=== PATIENT | male | born 1955 | race Caucasian/White ===

== ENCOUNTER 2020-01-16 07:30 | Outpatient (CLI) | payer OTHER, SELFPAY ==
--- NOTE | ~2020-01-16 | US_ITS ---
EXAMINATION: US carotid duplex BI DATE: 01/16/2020 08:01 INDICATION: Other specified symptoms and signs involving the circulation TECHNIQUE: Grayscale, color Doppler, and pulsed Doppler images of the cervical carotid arteries were obtained. The degree of vessel stenosis is placed in one of the following categories: normal, <50%, 5 0-69%, >=70% but less than near-occlusion, near-occlusion, or total occlusion. Note that percent sten osis relative to normal distal artery lumen diameter is indirectly measured from velocity measurement s as described by Kareem, et al. Radiology 2003; 229:340-346. COMPARISON: None. FINDINGS: RIGHT: The right common carotid artery (CCA) peak systolic velocity (PSV) is 82.0 cm/s. The right internal c arotid artery (ICA) PSV is 63.7 cm/s. The right ICA end-diastolic velocity (EDV) is 22.6 cm/s. The ri ght ICA/CCA PSV ratio is 0.8. Grayscale and color Doppler images yield an estimate of less than 50% d iameter reduction from plaque in the ICA. The external carotid artery (ECA) PSV is 65.2 cm/s. There i s antegrade flow in the right vertebral artery. LEFT: The left CCA PSV is 93.3 cm/s. The left ICA PSV is 48.1 cm/s. The left ICA EDV is 21.2 cm/s. The left ICA/CCA PSV ratio is 0.5. Grayscale and color Doppler images yield an estimate of less than 50% diam eter reduction from plaque in the ICA. The ECA PSV is 56.6 cm/s. There is antegrade flow in the left vertebral artery. IMPRESSION: 1. Less than 50% stenosis in the right internal carotid artery. 2. Less than 50% stenosis in the left internal carotid artery. Reviewed, dictated and finalized at [facility]. Reviewed, dictated and finalized at [facility].
== END 2020-01-16 07:31 | disposition home or self-care (01) ==
LOC: ANHIMG 07:33
PROVIDERS: PCP Internal Medicine; Visit Provider Internal Medicine
DX: R09.89 Other specified symptoms and signs involving the circulatory and respiratory systems (principal); I65.23 Occlusion and stenosis of bilateral carotid arteries
CPT/HCPCS: 93880

== ENCOUNTER 2020-06-18 08:35 | Outpatient (CLI) | payer OTHER, SELFPAY ==
--- NOTE | 2020-07-24 17:32 | WPDHOMESLEEP ---
Sleep Study - Home Unattended Date of Study: 06/18/20 Ordering Provider: Krystal Macias MD Interpreting Physician: Mallory Oliver MD Home Sleep Study Type: Apnea Link Air Height: 1.85 m Weight: 95.254 kg Body Mass Index: 27.7 Neck Circumference (inches): 15.5 [place]: 8 Reason for Sleep Study Waking at night with heart racing, , hypersomnia Sleep History Antony Kearney is a 65-year-old man who for many years has had difficulty waking up multiple times throughout the night. His heart is often racing. When he wakes up in the morning he feels as if a Ben truck had him. Does not feel rested. He also had difficulty falling asleep. He has a brother with a history of sleep disordered breathing. He constantly snores and is constantly loud enough that others complain about it. He occasionally awakens at night with heartburn, belching or coughing. He frequently has trouble sleeping with a cold. He frequently wakes up gasping for breath during the night. He occasionally has breathing problems at night observed by others. He never sweats excessively at night. He frequently notices his heart pounding or beating irregularly the night. He occasionally falls asleep during the day, frequently involuntarily however never while driving. He does not fall asleep during physical effort. He does not have loss of muscle tone with strong emotion. He does not have daytime difficulties due to excessive sleepiness. He is retired. He does not feel paralyzed on waking or falling asleep although he frequently has vivid dreamlike scenes upon awakening or falling asleep. He is not fearful of going to sleep. He occasionally has nightmares and occasionally remembers his dreams. He rarely has racing thoughts through his mind. He rarely feels sad, depressed or anxious. He never has muscular tension, never notices parts of his body jerking. He does not kick at night, denies crawling and aching feelings in his legs at night and denies having any leg pain during the night. He does not have morning jaw pain. He frequently grinds his teeth at night. He has never bothered by pain during the day and has never awakened by pain at night. He rarely wakes up feeling stiff in the morning, rarely wakes up with sore or achy muscles and rarely wakes up with pain in the neck or spine. He takes antacids regularly and regularly has heartburn at night. He has insomnia on occasion. Normal bedtime is between 7:00 and 8:00 p.m. . If he is on the couch it takes 15 minutes to fall asleep. If he is in bed it takes a 1/2 hour or maybe up to 1 full hour. It seems like he wakes up tender 15 times at night. When awake he will remain awake for 5-10 minutes. He rolls over in attempts to fall asleep again. He wakes in the morning at 4:00 a.m. which is the time that he previously woke up to go to work. Even though he is retired he still wakes up at 4 in the morning. If he sleeps past 4:00 a.m. he would feel as if he had over slept.. On the weekends he stays awake later, going to bed between 9 and 10:00 p.m. and waking at 4:00 a.m.. He estimates getting between 5 and 7 hours of sleep nightly. He does sleep with the television on all night. He denies taken a nap in the afternoon or evening. He does not feel refreshed after a 15 minutes nap. He is usually drowsy in the morning for about 15 minutes. Habits: He rarely smokes a pipe, about 6 times a year when he visits [place]. He drinks coffee 4-5 cups per day. No alcohol or recreational drugs. PMFSH Past Medical History Medical History Carotid bruit Dyslipidemia Essential hypertension Heartburn History of tobacco use Family History Family History Mother Hypertension, Onset Age: 80 Father Patient's father is , Onset Age: 80 Social History Social History Smoking status: Smoker, status unknow
[2020-07-24 17:48] VITALS: BMI 27.7
== END 2020-06-18 08:36 | disposition home or self-care (01) ==
PROVIDERS: PCP Internal Medicine; Visit Provider Internal Medicine
DX: G47.10 Hypersomnia, unspecified (principal); G47.33 Obstructive sleep apnea (adult) (pediatric)
CPT/HCPCS: 95806

== ENCOUNTER → 2021-05-26 02:54 | Outpatient (CLI) | payer OTHER, SELFPAY ==
[2021-05-26 19:24] LABS: SARS-CoV-2 RNA PCR Negative
== END ==
PROVIDERS: PCP Internal Medicine; Visit Provider Internal Medicine Critical Care Medicine
DX: R68.89 Other general symptoms and signs (principal); Z20.822 Contact with and (suspected) exposure to COVID-19
CPT/HCPCS: C9803; U0003; U0005

== ENCOUNTER 2022-08-25 13:16 | Outpatient (CLI) | payer OTHER, SELFPAY ==
--- NOTE | 2022-08-25 13:42 | ECHO_ITS ---
Patient Info Name: Antony Kearney Age: 67 years : 1955 Gender: Male Ht: 73 in Wt: 215 lbs BSA: 2.26 m2 HR: 62 bpm BP: 142 / 94 mmHg Technical Quality: Good Exam Date: 08/25/2022 1:52 PM Exam Location: [facility] Patient Status: Outpatient Admit Date: 08/25/2022 Staff Ordering Physician: Alvarez Savage APRN Electronic Imaging System Operator: Jared Swift RDCS, RT Attending Provider: Alvarez Savage APRN Referring Physician: Hussein JORDAN; Exam Type: CA echo doppler color flow Study Info Indications R01.1 - Cardiac murmur, unspecified Complete two-dimensional, color flow and Doppler transthoracic echocardiogram is performed. Strain analysis performed. Summary 1. Complete two-dimensional, color flow and Doppler transthoracic echocardiogram is performed. 2. Left ventricular chamber dimension is normal. 3. Ventricular septum is sigmoid shaped. No LVOT obstruction. 4. Left ventricular systolic function is normal, estimated at 60-65%. 5. The left ventricular diastolic function is grade I diastolic dysfunction. 6. E/e' 6 is not elevated. 7. Global longitudinal strain is mildly abnormal at -16.8%. 8. There is moderate aortic valve sclerosis. 9. There is mild to moderate aortic valve regurgitation. 10. There is mild mitral valve regurgitation. 11. There is trace tricuspid valve regurgitation. 12. No pulmonary hypertension, estimated pulmonary arterial systolic pressure is 23 mmHg. Left Ventricle E/e' 6 is not elevated. Global longitudinal strain is mildly abnormal at -16.8%. Ventricular septum is sigmoid shaped. No LVOT obstruction. Left ventricular chamber dimension is normal. Left ventricular systolic function is normal, estimated at 60-65%. The left ventricular diastolic function is grade I diastolic dysfunction. Right Ventricle Right ventricular systolic function is normal and normal TAPSE 2.5 cm. Right ventricular chamber dimension is normal. Left Atria Left atrial chamber dimension is normal. Right Atria Right atrial chamber dimension is normal. Aortic Valve The aortic valve is trileaflet. There is moderate aortic valve sclerosis. There is no aortic valve stenosis. There is mild to moderate aortic valve regurgitation. Pulmonic Valve There is no pulmonic regurgitation. Mitral Valve There is no mitral valve stenosis. There is mild mitral valve regurgitation. Tricuspid Valve There is trace tricuspid valve regurgitation. No pulmonary hypertension, estimated pulmonary arterial systolic pressure is 23 mmHg. Pericardium/Pleural There is no pericardial effusion. Inferior Vena Cava Normal inferior vena cava with >50% collapse upon inspiration consistent with normal right atrial pressure, 5 mmHg. Aorta The aortic root size at the sinus of Valsalva is normal. Left Ventricular Outflow Tract Name Value Normal LVOT 2D LVOT Diameter 2.1 cm LVOT Doppler LVOT Peak Gradient 4 mmHg LVOT Mean Gradient 2 mmHg LVOT VTI 26 cm LVOT VTI/AV VTI Ratio 0.6
== END 2022-08-25 13:17 | disposition home or self-care (01) ==
PROVIDERS: PCP Internal Medicine; Visit Provider Nurse Practitioner
DX: R01.1 Cardiac murmur, unspecified (principal); I34.0 Nonrheumatic mitral (valve) insufficiency; I35.1 Nonrheumatic aortic (valve) insufficiency
CPT/HCPCS: 93306